=== PATIENT | female | born 1975 ===

== ENCOUNTER 2017-04-01 14:02 | Outpatient (CLI) | payer OTHER | END 2017-04-01 14:12 | disposition home or self-care (01) | LOC: LAB 14:02 → EDBD 14:02 → LAB 14:12 | DX: B96.81 Helicobacter pylori [H. pylori] as the cause of diseases classified elsewhere (principal) ==

== ENCOUNTER → 2018-01-03 | Emergency (ER) | payer OTHER ==
[~2018-01-03] VITALS: Ht 144.8 cm; Wt 104.8 kg
[~2018-01-03] MED LIST: MECLIZINE HCL25 MG PO
== END | disposition home or self-care (01) ==
LOC: ER 22:36
DX: H81.12 Benign paroxysmal vertigo, left ear (principal); R42 Dizziness and giddiness

== ENCOUNTER → 2018-01-24 | Emergency (ER) | payer OTHER ==
[~2018-01-24] VITALS: Ht 144.8 cm; Wt 58.1 kg
== END | disposition home or self-care (01) ==
LOC: ER 14:24
DX: I10 Essential (primary) hypertension (principal); F41.8 Other specified anxiety disorders

== ENCOUNTER 2020-10-21 14:31 | Emergency (ER) | payer OTHER ==
[~2020-10-21] VITALS: Ht 139.7 cm; Wt 99.8 kg
[2020-10-21] MEDS ORDERED: IRON325 MG PO (18:35)
[2020-10-21] MEDS ORDERED: STOOL SOFTENER50 MG PO (18:35)
== END 2020-10-21 18:46 | disposition home or self-care (01) ==
LOC: ER 14:31
DX: R53.81 Other malaise (principal); B34.9 Viral infection, unspecified; D64.89 Other specified anemias; J02.9 Acute pharyngitis, unspecified; Z03.818 Encounter for observation for suspected exposure to other biological agents ruled out

== ENCOUNTER 2020-11-19 08:00 | Outpatient (CLI) | payer OTHER ==
[~2020-11-19 08:00] MED LIST changes: +IRON325 MG PO; +STOOL SOFTENER50 MG PO
== END 2020-11-19 08:30 | disposition home or self-care (01) ==
LOC: PPH VACUNA 08:00
PROVIDERS: ATTEND Emergency Medicine Pediatric Emergency Medicine
DX: Z23 Encounter for immunization (principal)

== ENCOUNTER 2021-02-05 14:19 | Outpatient (CLI) | payer OTHER | END 2021-02-05 14:28 | disposition home or self-care (01) | LOC: RAD 14:19 | PROVIDERS: ATTEND General Practice | DX: I10 Essential (primary) hypertension (principal) ==